=== PATIENT | female | born 1965 | race African-American/Black ===

== ENCOUNTER 2024-04-20 12:11 | Emergency (ER) | payer OTHER ==
[~2024-04-20] VITALS: Ht 165.1 cm; Wt 77.0 kg
[2024-04-20 12:12] VITALS: O2SAT 97
[2024-04-20 12:48] VITALS: BP 110/62; PULSE 67; RESP 16; TEMP 36.89184; O2SAT 98
== END 2024-04-20 13:18 | disposition home or self-care (01) ==
LOC: ER 12:11
DX: R55 Syncope and collapse (principal)
CPT/HCPCS: 93005; 99283